=== PATIENT | female | born 1970 | race Caucasian/White ===

== ENCOUNTER 2023-04-23 18:42 | Emergency (ER) | payer BC, OTHER ==
[~2023-04-23] VITALS: Ht 160 cm; Wt 67.1 kg
[2023-04-23 19:31] VITALS: BP_SYST 133; PULSE 77; RESP 18; TEMP 98; O2SAT 98
== END 2023-04-23 20:37 | disposition left against medical advice (07) ==
LOC: SED 18:42
DX: R10.31 Right lower quadrant pain (principal); R50.9 Fever, unspecified; Z53.21 Procedure and treatment not carried out due to patient leaving prior to being seen by health care provider
CPT/HCPCS: 99281